=== PATIENT | female | born 1945 | race Caucasian/White ===

== ENCOUNTER → 2018-01-30 11:05 | Outpatient (CLI) | payer MEDICARE, SELFPAY ==
--- NOTE | 2018-01-30 | DI.MG.S_ITS ---
BILATERAL DIGITAL SCREENING MAMMOGRAM 3D/2D WITH CAD: 01/30/2018 CLINICAL: Routine screening. Comparison is made to exams dated: 11/10/2014 mammogram and 06/04/2012 mammogram [facility]. There are scattered fibroglandular elements in both breasts. Current study was also evaluated with a Computer Aided Detection (CAD) system. No significant masses, calcifications, or other findings are seen in either breast. There has been no significant interval change. IMPRESSION: NEGATIVE There is no mammographic evidence of malignancy. A 1 year screening mammogram is recommended. This exam was interpreted at Station ID: [id number]. NOTE: For mammograms, a report in lay terms will be sent to the patient. Approximately 15% of breast malignancies will not be visualized mammographically. In the management of a palpable breast mass, a negative mammogram must not discourage biopsy of a clinically suspicious lesion. Electronically Signed By: Radha dodge/tali:01/30/2018 14:07:08 letter sent: Normal Exam ACR BI-RADS Category 1: Negative 3341F
== END ==
PROVIDERS: PCP Family Medicine; Visit Provider Family Medicine
DX: Z12.31 Encounter for screening mammogram for malignant neoplasm of breast (principal)
CPT/HCPCS: 77063; 77067

== ENCOUNTER → 2019-03-11 10:05 | Outpatient (CLI) | payer MEDICARE, SELFPAY ==
[2019-03-11 10:19] LABS: RBC Urine None Seen (0-5/HPF)
[2019-03-11 10:51] LABS: Appearance Urine UA CLEAR; Bilirubin Urine UA NEGATIVE (NEGATIVE); Color Urine UA YELLOW; Glucose Urine UA NEGATIVE (Negative); Ketones Urine UA NEGATIVE (NEGATIVE); Leukocyte Esterase Urine UA NEGATIVE (NEGATIVE); Nitrite Urine UA NEGATIVE (Negative); Occult Blood Urine UA NEGATIVE (Negative); Protein Urine UA NEGATIVE (Negative); Urobilinogen Urine UA 0.2 E.U./dL (0.2)
[2019-03-11 11:12] LABS: Bacteria Urine Occasional (0-1); Culture Indicated Urine Cult Not Indicated; Squamous Epithelial Cell Urine 0-1 /HPF (0-5/HPF); WBC Urine 0-1/HPF (0-5/HPF)
== END ==
PROVIDERS: PCP Family Medicine; Visit Provider Family Medicine
DX: R30.0 Dysuria (principal); R35.0 Frequency of micturition; Z87.440 Personal history of urinary (tract) infections
CPT/HCPCS: 81001

== ENCOUNTER → 2019-03-19 07:58 | Outpatient (CLI) | payer MEDICARE, SELFPAY ==
[2019-03-19 09:27] LABS: Add Manual Diff / Slide Review NO; Basophils Absolute Auto 200 /uL (0-100); Basophils Percent Auto 2.2 % (0-2); Eosinophils Absolute Auto 400 /uL (0-450); Eosinophils Percent Auto 5.3 % (2-4); Hemoglobin 15.2 g/dL (12.0-16.0); Lymphocytes Absolute Auto 2500 /uL (1100-4500); Mean Corpuscular HGB Conc 34.5 % (30-36); Mean Corpuscular Hemoglobin 31.8 PG (26-34); Mean Corpuscular Volume 92.1 fL (80-100); Monocytes Absolute Auto 500 /uL (0-900); Monocytes Percent Auto 6.5 % (3-14); Neutrophils Absolute Auto 3800 /uL (1500-7000); Platelet Count 370 X10^3/uL (150-400); Red Blood Cell Count 4.78 X10^6/uL (4.0-5.2); Red Cell Distribution Width 12.3 % (11.6-14.8); White Blood Cell Count 7.3 X10^3/uL (4.5-11.0)
[2019-03-19 09:44] LABS: Alanine Aminotransferase 30 IU/L (9-52); Albumin 4.2 g/dL (3.5-5.0); Albumin Globulin Ratio 1.3 (1.0-2.8); Alkaline Phosphatase 95 U/L (38-126); Aspartate Aminotransferase 26 IU/L (14-36); Bilirubin Total 0.6 mg/dL (0.2-1.3); Blood Urea Nitrogen 12 mg/dL (7-17); Calcium 9.7 mg/dL (8.4-10.2); Carbon Dioxide 24 mmol/L (22-32); Chloride 106 mmol/L (98-107); Cholesterol 257 mg/dL (140-199); Estimated Glomerular Filt Rate > 60.0 mL/min (>60); Globulin 3.2 g/dL (1.7-4.1); Glucose 113 mg/dL (80-110); HDL Cholesterol 52 mg/dL (40-60); HEMOLYSIS < 15 (0-50); LDL Cholesterol Calculated 159 mg/dL (<100); Sodium 140 mmol/L (137-145); Total Protein 7.4 g/dL (6.3-8.2); Triglycerides 230 mg/dL (35-150)
== END ==
PROVIDERS: PCP Family Medicine; Visit Provider Family Medicine
DX: Z13.220 Encounter for screening for lipoid disorders (principal); K21.9 Gastro-esophageal reflux disease without esophagitis; E66.9 Obesity, unspecified
CPT/HCPCS: 36415; 80053; 80061; 85025

== ENCOUNTER → 2019-05-31 10:02 | Outpatient (CLI) | payer MEDICARE, SELFPAY | PROVIDERS: PCP Family Medicine; Visit Provider Family Medicine | DX: M85.88 Other specified disorders of bone density and structure, other site (principal); Z78.0 Asymptomatic menopausal state; Z90.722 Acquired absence of ovaries, bilateral | CPT/HCPCS: 77080 ==

== ENCOUNTER → 2019-12-10 09:48 | Outpatient (CLI) | payer MEDICARE, SELFPAY ==
--- NOTE | 2019-12-10 | DI.MG.S_ITS ---
BILATERAL DIGITAL SCREENING MAMMOGRAM 3D/2D WITH CAD: 12/10/2019 CLINICAL: Routine screening. Comparison is made to exams dated: 01/30/2018 mammogram - [facility], 11/10/2014 mammogram, and 06/04/2012 mammogram - [facility]. There are scattered fibroglandular elements in both breasts. Current study was also evaluated with a Computer Aided Detection (CAD) system. There is a benign intramammary node in the left breast. No significant masses, calcifications, or other findings are seen in either breast. There has been no significant interval change. IMPRESSION: There is no mammographic evidence of malignancy. A 1 year screening mammogram is recommended. This exam was interpreted at Station ID: [id number]. NOTE: For mammograms, a report in lay terms will be sent to the patient. Approximately 15% of breast malignancies will not be visualized mammographically. In the management of a palpable breast mass, a negative mammogram must not discourage biopsy of a clinically suspicious lesion. Electronically Signed By: Oneil zapata/tali:12/10/2019 10:29:51 letter sent: Normal Exam ACR BI-RADS Category 2: Benign Finding(s) 3342F
== END ==
PROVIDERS: PCP Family Medicine; Referring Provider Family Medicine; Visit Provider Family Medicine
DX: Z12.31 Encounter for screening mammogram for malignant neoplasm of breast (principal)
CPT/HCPCS: 77063; 77067

== ENCOUNTER → 2020-09-16 12:00 | Outpatient (CLI) | payer MEDICARE, SELFPAY ==
[2020-09-16 12:24] LABS: COVID19 -Nasal RAPID Negative (Negative)
== END ==
PROVIDERS: PCP Family Medicine; Visit Provider Physician Assistant
DX: Z20.822 Contact with and (suspected) exposure to COVID-19 (principal)
CPT/HCPCS: 87635

== ENCOUNTER → 2020-11-26 15:40 | Outpatient (CLI) | payer MEDICARE, SELFPAY ==
--- NOTE | 2020-11-26 15:42 | DI.RAD.S_ITS ---
PROCEDURE: XR HAND RT MIN 3V INDICATIONS: pain and swelling of fingers bilaterally TECHNIQUE: 3 views of the hand(s) acquired. COMPARISON: None. FINDINGS: Bones: No fractures or dislocations. Carpal bones are normally aligned. No suspicious bony lesions. No periosteal reaction. No osseous erosive changes. Soft tissues: No suspicious soft tissue calcifications. No soft tissue gas. IMPRESSION: No fracture. No osseous lesion. If symptoms and/or clinical suspicion for pathology persists, further assessment with repeat radiographs (7-10 days) or advanced imaging (e.g. CT, MRI or bone scan) should be considered. Dictated by: Molly Pike MD, PhD on 11/26/2020 at 18:30 Approved by: Molly Pike MD, PhD on 11/26/2020 at 18:31
--- NOTE | 2020-11-26 15:42 | DI.RAD.S_ITS ---
PROCEDURE: XR HAND LT MIN 3V INDICATIONS: pain and swelling of fingers bilaterally TECHNIQUE: 3 views of the hand(s) acquired. COMPARISON: None. FINDINGS: Bones: No fractures or dislocations. Carpal bones are normally aligned. No suspicious bony lesions. No osseous erosive changes. No periosteal reaction. Soft tissues: No suspicious soft tissue calcifications. No soft tissue gas. IMPRESSION: No fracture. No osseous lesion. If symptoms and/or clinical suspicion for pathology persists, further assessment with repeat radiographs (7-10 days) or advanced imaging (e.g. CT, MRI or bone scan) should be considered. Dictated by: Molly Pike MD, PhD on 11/26/2020 at 18:29 Approved by: Molly Pike MD, PhD on 11/26/2020 at 18:30
[2020-11-26 17:29] LABS: Add Manual Diff / Slide Review NO; Basophils Absolute Auto 100 /uL (0-100); Eosinophils Absolute Auto 300 /uL (0-450); Eosinophils Percent Auto 6.8 % (2-4); Hematocrit 40.7 % (36-46); Hemoglobin 14.4 g/dL (12.0-16.0); Lymphocytes Absolute Auto 1600 /uL (1100-4500); Lymphocytes Percent Auto 33.1 % (25-40); Mean Corpuscular HGB Conc 35.5 % (30-36); Mean Corpuscular Hemoglobin 30.7 PG (26-34); Mean Corpuscular Volume 86.6 fL (80-100); Monocytes Absolute Auto 600 /uL (0-900); Monocytes Percent Auto 12.6 % (3-14); Neutrophils Absolute Auto 2200 /uL (1500-7000); Neutrophils Percent Auto 45.5 % (50-75); Platelet Count 329 X10^3/uL (150-400); Red Cell Distribution Width 12.5 % (11.6-14.8); White Blood Cell Count 4.9 X10^3/uL (4.5-11.0)
[2020-11-26 17:32] LABS: HEMOLYSIS < 15 (0-50)
[2020-11-26 17:40] LABS: Alanine Aminotransferase 22 IU/L (<35); Alkaline Phosphatase 92 U/L (38-126); Aspartate Aminotransferase 30 IU/L (14-36); Bilirubin Total 0.4 mg/dL (0.2-1.3); Blood Urea Nitrogen 16 mg/dL (7-17); C-Reactive Protein Quant 1.2 mg/dL (<1.0); Calcium 9.8 mg/dL (8.4-10.2); Carbon Dioxide 21 mmol/L (22-32); Chloride 107 mmol/L (98-107); Estimated Glomerular Filt Rate > 60.0 mL/min (>60); Globulin 3.9 g/dL (1.7-4.1); Glucose 117 mg/dL (80-110); Sodium 136 mmol/L (137-145); Total Protein 7.9 g/dL (6.3-8.2); Uric Acid 4.8 mg/dL (2.5-6.2)
[2020-11-26 18:00] LABS: NT-proBNP (BNP-Adult 18+) 72 pg/mL (<125)
[2020-11-26 18:08] LABS: Rheumatoid Factor 136.6 IU/mL (<12.0)
== END ==
PROVIDERS: PCP Family Medicine; Referring Provider Family Medicine; Visit Provider Family Medicine
DX: M25.442 Effusion, left hand; M79.641 Pain in right hand; M79.642 Pain in left hand; M25.441 Effusion, right hand; M25.50 Pain in unspecified joint
CPT/HCPCS: 36415; 73130; 80053; 83880; 84550; 85025; 86140; 86430

== ENCOUNTER → 2021-01-05 10:36 | Outpatient (CLI) | payer MEDICARE, SELFPAY ==
--- NOTE | 2021-01-05 10:37 | DI.US.S_ITS ---
PROCEDURE: US THYROID INDICATIONS: NODULE TECHNIQUE: Real-time scanning was performed of the thyroid gland, with image documentation. COMPARISON: None. FINDINGS: Right: Thyroid lobe measures 1.1 x 1.5 x 4.7 cm, and is homogeneous in echotexture. Left: Thyroid lobe measures 2.6 x 3.3 x 5 6 cm, and is homogenous in echotexture. Isthmus: 1.8 mm thick. Nodule number: 1 Location: Left mid to inferior thyroid lobe Size: 2.3 x 2.8 x 4.0 cm. Composition: Solid Echogenicity: Hyperechoic Shape: Wider than tall Margins: Lobulated Echogenic foci: Macro calcifications. Total points: 6 ACR TI-RADS category: TR 4 Nodule number: 2 Location: Inferior right thyroid lobe Size: 3 x 3 x 5 mm. Composition: Spongiform Echogenicity: Isoechoic Shape: Wider than tall Margins: Smoothly marginated Echogenic foci: None Total points: 4 ACR TI-RADS category: TR 4 IMPRESSION: The large TR 4 thyroid nodule within the middle and inferior left thyroid lobe has a average diameter of greater than 1.5 cm and for this reason fine needle aspiration biopsy at this time is recommended. The small inferior right thyroid nodule, also a TR 4 category nodule, does not warrant biopsy or follow-up given its sub cm size. ACR TI-RADS definitions and recommendations: TI-RADS 1 (benign): 0 points. FNA not needed. TI-RADS 2 (not suspicious): 2 points. FNA not needed. TI-RADS 3 (mildly suspicious): 3 points. * FNA if 2.5 cm or larger, follow up if 1.5 cm or larger (at 1, 3, and 5 years). TI-RADS 4 (moderately suspicious): 4-6 points. * FNA if 1.5 cm or larger, follow up if 1 cm or larger (at 1, 2, 3, and 5 years). TI-RADS 5 (highly suspicious): 7 points or more. * FNA if 1 cm or larger, follow up if 0.5 cm or larger (every year for 5 years). Dictated by: Presley Padilla M.D. on 01/05/2021 at 14:45 Approved by: rPesley Padilla M.D. on 01/05/2021 at 14:53
[2021-01-05 13:28] LABS: TSH w/ Reflex to FT4 1.42 uIU/mL (0.47-4.68)
== END ==
PROVIDERS: PCP Family Medicine; Referring Provider Family Medicine; Visit Provider Family Medicine
DX: E04.2 Nontoxic multinodular goiter (principal)
CPT/HCPCS: 36415; 76536; 84443

== ENCOUNTER → 2021-01-21 09:10 | Outpatient (CLI) | payer MEDICARE, SELFPAY ==
--- NOTE | 2021-01-21 | PATH_ITS ---
Note [facility] Accession Number: [id number] TESTS RESULT FLAG UNITS REF RANGE LAB Clinician Provided Cytology Information No. of containers..01 Other (Miscellaneous) No. of containers..00 Previously Prepared Cytology Slide 01 L THYROID NODULE FNA DIAGNOSIS: 02 L THYROID NODULE FNA NEGATIVE FOR MALIGNANT CELLS. B[place]ES[place] CATEGORY II. SPECIMEN CONSISTS OF BENIGN FOLLICULAR CELLS, HEMOSIDERIN-LADEN MACROPHAGES, COLLOID, AND BLOOD. THIS PATTERN IS CONSISTENT WITH A COLLOID NODULE. Pathologist ICD10: 02 E04.1 02 Angela Nicholson MD, Pathologist NPI- [id number] Kp Covington, Story Analyst ([facility]) 01 30 CC, PINK, CLEAR Also received 1 RNA vial, 5 quick stained, and 5 alcohol fixed slides. /[facility] 01/21/[address] [place] [address] FLAG LEGEND: L-Low Normal,H-High Normal,LL-Alert Low,HH-Alert High <-Panic Low,>-Panic High,A-Abnormal,AA-Critical Abnormal Performed at: 01 =[facility] Cytology [address] [facility], [place] [address] Shashi Acosta MD, 02 LCLWA [facility] [address] [place] [id number] Paola Hunter MD, Performed at: 01 [facility] Cytology [address], [place], [place] [id number] MD Shashi Acosta MD Phone: [phone]
--- NOTE | 2021-01-21 09:13 | DI.US.S_ITS ---
PROCEDURE: US FINE NEEDLE ASPIRATION INDICATIONS: NODULE TECHNIQUE: The indications, alternatives, benefits, risks, and complications of the procedure were explained to the patient. Written informed consent was obtained and placed in the chart. The thyroid region was examined sonographically and a site was chosen for ultrasound guided percutaneous sampling. The skin was prepared and draped in the usual fashion, and anesthetized with 1% lidocaine infiltrated from the skin down to the thyroid gland. Multiple passes were then performed, with contents emptied into an appropriate pathology specimen container. A bandage was applied to the area of access at completion of the study. COMPARISON: None. FINDINGS: Location(s) of lesion(s) sampled: Left thyroid nodule. Eure: 25 gauge hypodermic needles. Number of passes: 6 Medications: 1% lidocaine for local anaesthesia. Complications: None. IMPRESSION: Successful ultrasound-guided thyroid nodule fine needle aspiration, with cytology results pending. Please see chart below for management recommendations based on cytology results. [facility] ReportingRecommendationsNon-diagnostic* Repeat US-guided FNA, with on-site cytology evaluation if possible. * Repeated non-diagnostic nodules without high suspicion US features: close observation vs surgical consult. * Consider surgery if nodule has high suspicion US features, grows >20% in 2 dimensions on followup, or patient has clinical risk factors for malignancy. Benign* If nodule has high suspicion US features: repeat US and FNA within 12 months. * If nodule has low to intermediate suspicion US features: repeat US at 12-24 months. If nodule grows (20% increase in at least 2 dimensions, with minimal increase of 2 mm or >50% change in volume), or development of new suspicious US features, then repeat FNA or continue followup. * If nodule has very low suspicion US features: followup US at >24 months. Atypia of undetermined significance, follicular lesion of undetermined significanceRepeat FNA, molecular testing, followup US, or surgical consult.Follicular neoplasm, suspicious for follicular neoplasmSurgical consult; also consider molecular testing. Suspicious for malignancySurgical consult.MalignantSurgical consult. Dictated by: Presley Padilla M.D. on 01/21/2021 at 10:52 Approved by: Presley Padilla M.D. on 01/21/2021 at 10:53
== END ==
PROVIDERS: PCP Family Medicine; Referring Provider Family Medicine; Visit Provider Family Medicine
DX: E04.1 Nontoxic single thyroid nodule (principal)
CPT/HCPCS: 10005

== ENCOUNTER 2021-04-24 10:18 | Emergency (ER) | payer MEDICARE, SELFPAY ==
[2021-04-24 10:22] VITALS: BP 149/86; PULSE 82; RESP 18; TEMP 36.8; O2SAT 98; BMI 28.3
[2021-04-24 10:54] VITALS: PULSE 72; RESP 18; O2SAT 97
--- NOTE | 2021-04-24 10:55 | ED_ITS ---
HPI - Abdominal Pain General Chief Complaint: Abdominal Pain Stated Complaint: diverticulitis attack Time Seen by Provider: 04/24/21 10:41 Source: patient Mode of arrival: Ambulatory Limitations: no limitations History of Present Illness HPI narrative: 76-year-old Female history of diverticulitis, frequent UTIs pres enting today with left lower quadrant pain ongoing for last 2-3 days. She has actually had at least 3 episodes this year she was hospitalized in [place] earlier this year and has had 2 episodes 1 in December and 1 in February since then. It seems to be exacerbated by food for her. She did have some fast food earlier which she thinks may have caused it. No seeds or nuts at this time. She has not had any fever or chills. No painful or frequent urination. No bloody stools no nausea or vomiting no chest pain. She has been taking ibuprofen which seems to help for pain. Related Data Home Medications Medication Instructions Recorded Confirmed OMEGA-3 FATTY ACIDS (FISH OIL) PO #0 03/15/16 10/03/20 [VITAMINS] #0 03/15/16 10/03/20 calcium acetate(phosphat bind) 667 #0 03/15/16 10/03/20 mg capsule aspirin 81 mg tablet,delayed 81 mg PO DAILY 08/10/20 10/03/20 release (Adult Low Dose Aspirin) Previous Rx's Medication Instructions Recorded albuterol sulfate 90 mcg/actuation 1 inh INHALATION Q4-6H PRN #18 g 09/16/20 aerosol inhaler scopolamine base 1 mg over 3 days 1 patch TRANSDERMAL Q3D PRN #1 ea 01/01/21 transdermal patch fluconazole 150 mg tablet 150 mg PO DAILY #2 tab 03/12/21 amoxicillin 875 mg-potassium 1 tab PO Q12H #20 tab 04/24/21 clavulanate 125 mg tablet (Augmentin) Allergies Allergy/AdvReac Type Severity Reaction Status Date / Time levofloxacin [From Levaquin] Allergy Mild Rash Verified 04/24/21 10:39 metronidazole [From Flagyl] Allergy Mild Rash Verified 04/24/21 10:39 Sulfa (Sulfonamide Allergy Unknown Verified 10/03/20 18:45 Antibiotics) [SULFA (SULFONAMIDE ANTIBIOTICS)] Review of Systems Review of Systems Narrative: GENERAL: Denies chills, fatigue, malaise, fever, sweats, travel HEENT: Denies sinus pain, ear pain, sore throat, difficulty swallowing, neck pain RESPIRATORY: Denies dyspnea, cough, wheezing, hemoptysis, sputum. CARDIOVASCULAR: Denies chest pain, palpitations, orthopnea, edema GASTROINTESTINAL: See HPI : Denies dysuria, frequency, incontinence, hematuria, urinary retention, flank pain. MUSCULOSKELETAL: Denies weakness, joint pain, or bony pain SKIN: No rash, no erythema, no pruritus NEUROLOGIC: Denies weakness, dizziness, headache, numbness, change in speech, confusion PSYCHIATRIC: No concerning psychosocial issues. 12 point review of systems is negative except for those stated above and HPI Patient History Medical History Dental infection Diverticulitis Herpes History of chicken pox History of chickenpox Measles Measles Recurrent UTI Tinnitus Surgical History H/O: hysterectomy History of appendectomy History of cholecystectomy History of dental surgery S/P appendectomy (~1963) S/P cholecystectomy (~1996) S/P hysterectomy (~1980) Family History Father Heart disease Mother High cholesterol Social History marital status: household members: spouse lives independently: Yes education level: college occupational status: other Smoking Status: Never smoker alcohol intake: current substance use type: does not use Smoking Status: Never smoker Exam Initial Vital Signs Initial Vital Signs: Vital Signs Temperature 98.2 F 04/24/21 10:22 Pulse Rate 82 04/24/21 10:22 Respiratory Rate 18 04/24/21 10:22 Blood Pressure 149/86 H 04/24/21 10:22 Pulse Oximetry 98 04/24/21 10:22 GENERAL: Well-appearing 76-year-old femaleand in no acute distress. HEENT: Head atraumatic,EOMI, pupils reactive, face symmetric, moist mucous membranes CARDIOVASCULAR: Regular rate and rhythm without murmurs, rubs or gallops. RESPIRATORY: Breath sounds equal bilaterally, no wheezes rales or rhonchi. ABDOMEN: Soft, tender left lower quadrant pain no flank pain no guarding rebound EXTREMITIES: Normal range of motion, no clubbing or edema. Neurovascularly intact NEUROLOGICAL: Alert and oriented x4.Normal gait and speech. SKIN: Warm, dry, no laceration, no petechiae, no rashes or lesions. Course Orders Ordered: ED Orders 04/24/21 10:44 Complete Blood Count AUTO DIFF Stat Comprehensive Metabolic Panel Stat Lipase Stat 04/24/21 10:55 CT abdomen pelvis w con Stat Vital Signs Vital signs: Vital Signs - 8 hr 04/24/21 12:09 04/24/21 12:11 Pulse Rate 86 90 Respiratory Rate 18 17 Blood Pressure 135/106 H Pulse Oximetry 95 98 MDM - Abdominal Pain Lab Data Result diagrams: 04/24/21 10:44 04/24/21 10:44 Labs: Lab Results 04/24/21 04/24/21 Range/Units 10:44 10:44 WBC 2.7 L (4.5-11.0) X10^3/uL RBC 4.96 (4.0-5.2) X10^6/uL Hgb 14.1 (12.0-16.0) g/dL Hct 42.3 (36-46) % MCV 85.3 (80-100) fL MCH 28.5 (26-34) PG MCHC 33.5 (30-36) % RDW 14.1 (11.6-14.8) % Plt Count 344 (150-400) X10^3/uL Neut % (Auto) Not Reportable Lymph % (Auto) Not Reportable Jack % (Auto) Not Reportable Eos % (Auto) Not Reportable Baso % (Auto) Not Reportable Lymph # (Auto) Not Reportable Jack # (Auto) Not Reportable Baso # (Auto) Not Reportable Total Counted 50 Seg Neutrophils % 8.0 L (38-70) % Lymphocytes % (Manual) 30.0 (25-45) % Atypical Lymphs % 22.0 H ( - 0) % Monocytes % (Manual) 32.0 H (2-11) % Eosinophils % (Manual) 8.0 H (2-4) % Neutrophils # (Manual) 216 L (6642-5922) /uL RBC Morphology Normal morphology Sodium 139 (137-145) mmol/L Potassium 4.4 (3.4-5.1) mmol/L Chloride 109 H (98-107) mmol/L Carbon Dioxide 24 (22-32) mmol/L BUN 10 (7-17) mg/dL Creatinine 0.58 (0.52-1.04) mg/dL Estimated GFR > 60.0 (>60) mL/min BUN/Creatinine Ratio 17.2 (6-22) Glucose 118 H (80-110) mg/dL Calcium 9.4 (8.4-10.2) mg/dL Total Bilirubin 0.5 (0.2-1.3) mg/dL AST 24 (14-36) IU/L ALT 17 (<35) IU/L Alkaline Phosphatase 74 (38-126) U/L Total Protein 7.7 (6.3-8.2) g/dL Albumin 4.0 (3.5-5.0) g/dL Globulin 3.7 (1.7-4.1) g/dL Albumin/Globulin Ratio 1.1 (1.0-2.8) Lipase 66 (23-300) U/L Point of care testing: Urine Dip Bedside Urine Glucose Negative Bedside Urine Bilirubin - Negative Bedside Urine Ketone - Negative Urine Specific [place] 1.010 Bedside Urine Occult Blood - Negative Bedside Urine pH 6 Bedside Urine Protein - Negative Bedside Urine Urobilinogen - Negative Bedside Urine Nitrite - Negative Bedside Urine Leukocytes - Negative Esterase Imaging Data CT scan - abdomen/pelvis: Radiologist's Impression: PROCEDURE:? CT ABDOMEN PELVIS W CON ? INDICATIONS:? llq pain ? TECHNIQUE:? After the administration of oral and IV contrast, axial sections were acquired from the lung bases to the pubic symphysis.? Coronal and sagittal reformats were performed.? For radiation dose reduction, the following was used:? automated exposure control, adjustment of mA and/or kV according to patient size. ? COMPARISON:? None. ? FINDINGS:? Image quality:? Excellent.? ? Lung bases:? Unremarkable.? Small hiatal hernia noted. ? Heart:? No significant findings. ? ? ABDOMEN: Liver:? Unremarkable.? ? Gallbladder:? Cholecystectomy Biliary ducts:? Unremarkable.? ? Pancreas:? Unremarkable.? ? Spleen:? Splenomegaly, 13 cm Adrenal Glands:? Unremarkable.? ? Kidneys and Ureters:? Unremarkable.? ? ? Stomach and Bowel:? Multiple diverticula arise from the descending and sigmoid colon.? Mild wall thickening and pericolonic phlegm atresia change noted in the mid sigmoid.? No adjacent abscess, free fluid or free air.? Moderate upstream fecal retention present in the colon as well.? No obstruction Peritoneum:? No abnormal intraperitoneal fluid.? No free air.? ? Ventral Wall: ? No hernia.? Abdominal Nodes:? No retroperitoneal or mesenteric adenopathy by size criteria.? Vessels:? Aorta and inferior vena cava are normal in size.? ? PELVIS: Pelvic Organs:? Unremarkable.? ? Bladder:? Unremarkable.? ? Pelvic Nodes: No enlarged lymph nodes.? Miscellaneous: No inguinal hernias are seen. ? ? ? Bones:? Unremarkable.? IMPRESSION:? ? 1. Mild mid sigmoid diverticulitis without evidence of abscess, free air or obstruction. 2. Mild splenomegaly, 13 cm. 3. Cholecystectomy and small hiatal hernia.? Approved by: Cristobal Clifton M.D. on 04/24/2021 at 11:03? [facility] Narrative Medical decision making narrative: It appears that patient has previously been seen in diagnosed by primary care provider in office but symptoms improved with Augmentin which she was placed on secondary to allergies to Flagyl and Levaquin. she has had imaging but it was done in [place] we have no record of imaging here. I think reasonable with 3rd bout of presumed diverticulitis to get a CT. CT confirms mild diverticulitis. Blood work is overall reassuring. The patient is going out of town shortly was start her on antibiotics. Discharge Plan Departure Patient Disposition: Home Clinical Impression: Diverticulitis Instructions: DI for Abdominal Pain-Adult Activity Restrictions/Additional Instructions: *You have been diagnosed with diverticulitis *What to do: At this time blood work is reassuring CT scan does show mild case of diverticulitis. *Continue to take medications as directed Augmentin 875 mg twice daily for 10 days--> SENT TO [facility] *Follow up with your primary care provider in 2-3 days *Return to ER if you should have increasing abdominal pain, bloody stools, nausea vomiting or fever or any new, worsening or concerning symptoms Prescriptions: New amoxicillin-pot clavulanate [Augmentin] 875-125 mg tablet 1 tab PO Q12H Qty: 20 RF: 0 No Action albuterol sulfate 90 mcg/actuation HFA aerosol inhaler 1 inh inhalation Q4-6H PRN (Reason: shortness of breath) Qty: 18 RF: 0 scopolamine base 1 mg over 3 days patch 3 day 1 patch transdermal Q3D PRN (Reason: motion sickness) Qty: 1 RF: 1 fluconazole 150 mg tablet 150 mg PO DAILY Qty: 2 RF: 1 [VITAMINS] Qty: 0 RF: 0 calcium acetate(phosphat bind) 667 mg capsule Qty: 0 RF: 0 OMEGA-3 FATTY ACIDS (FISH OIL) PO Qty: 0 RF: 0 aspirin [Adult Low Dose Aspirin] 81 mg tablet,delayed release (DR/EC) 81 mg PO DAILY RF: 0 Referrals: Cheryle Ferrera DO [Primary Care Provider] -
--- NOTE | 2021-04-24 10:55 | DI.CT.S_ITS ---
PROCEDURE: CT ABDOMEN PELVIS W CON INDICATIONS: llq pain TECHNIQUE: After the administration of oral and IV contrast, axial sections were acquired from the lung bases to the pubic symphysis. Coronal and sagittal reformats were performed. For radiation dose reduction, the following was used: automated exposure control, adjustment of mA and/or kV according to patient size. COMPARISON: None. FINDINGS: Image quality: Excellent. Lung bases: Unremarkable. Small hiatal hernia noted. Heart: No significant findings. ABDOMEN: Liver: Unremarkable. Gallbladder: Cholecystectomy Biliary ducts: Unremarkable. Pancreas: Unremarkable. Spleen: Splenomegaly, 13 cm Adrenal Glands: Unremarkable. Kidneys and Ureters: Unremarkable. Stomach and Bowel: Multiple diverticula arise from the descending and sigmoid colon. Mild wall thickening and pericolonic phlegm atresia change noted in the mid sigmoid. No adjacent abscess, free fluid or free air. Moderate upstream fecal retention present in the colon as well. No obstruction Peritoneum: No abnormal intraperitoneal fluid. No free air. Ventral Wall: No hernia. Abdominal Nodes: No retroperitoneal or mesenteric adenopathy by size criteria. Vessels: Aorta and inferior vena cava are normal in size. PELVIS: Pelvic Organs: Unremarkable. Bladder: Unremarkable. Pelvic Nodes: No enlarged lymph nodes. Miscellaneous: No inguinal hernias are seen. Bones: Unremarkable. IMPRESSION: 1. Mild mid sigmoid diverticulitis without evidence of abscess, free air or obstruction. 2. Mild splenomegaly, 13 cm. 3. Cholecystectomy and small hiatal hernia. Approved by: Cristobal Clifton M.D. on 04/24/2021 at 11:03
[2021-04-24 11:00] VITALS: PULSE 71; O2SAT 96
[2021-04-24 11:11] LABS: Alanine Aminotransferase 17 IU/L (<35); Albumin Globulin Ratio 1.1 (1.0-2.8); Alkaline Phosphatase 74 U/L (38-126); Aspartate Aminotransferase 24 IU/L (14-36); BUN Creatinine Ratio 17.2 (6-22); Bilirubin Total 0.5 mg/dL (0.2-1.3); Blood Urea Nitrogen 10 mg/dL (7-17); Calcium 9.4 mg/dL (8.4-10.2); Carbon Dioxide 24 mmol/L (22-32); Chloride 109 mmol/L (98-107); Estimated Glomerular Filt Rate > 60.0 mL/min (>60); Globulin 3.7 g/dL (1.7-4.1); Glucose 118 mg/dL (80-110); HEMOLYSIS < 15 (0-50); Lipase 66 U/L (23-300); Potassium 4.4 mmol/L (3.4-5.1); Sodium 139 mmol/L (137-145); Total Protein 7.7 g/dL (6.3-8.2)
[2021-04-24 11:22] LABS: Hematocrit 42.3 % (36-46); Hemoglobin 14.1 g/dL (12.0-16.0); Mean Corpuscular HGB Conc 33.5 % (30-36); Mean Corpuscular Hemoglobin 28.5 PG (26-34); Mean Corpuscular Volume 85.3 fL (80-100); Platelet Count 344 X10^3/uL (150-400); Red Blood Cell Count 4.96 X10^6/uL (4.0-5.2); Red Cell Distribution Width 14.1 % (11.6-14.8); White Blood Cell Count 2.7 X10^3/uL (4.5-11.0)
[2021-04-24 11:24] LABS: Add Manual Diff / Slide Review YES
[2021-04-24 11:44] LABS: Neutrophils Absolute Manual 216 /uL (3000-5900); RBC Morphology Normal Morphology; Total Cells Counted 50
[2021-04-24 12:09] VITALS: PULSE 86; RESP 18; O2SAT 95
[2021-04-24 12:11] VITALS: BP 135/106; PULSE 90; RESP 17; O2SAT 98
== END 2021-04-24 12:34 | disposition home or self-care (01) ==
PROVIDERS: Emergency Provider Emergency Medicine; PCP Family Medicine
DX: K57.92 Diverticulitis of intestine, part unspecified, without perforation or abscess without bleeding (principal)
CPT/HCPCS: 36415; 74177; 80053; 81003; 83690; 85007; 85025; 99283; 99284

== ENCOUNTER → 2021-11-09 16:47 | Outpatient (CLI) | payer MEDICARE, SELFPAY ==
--- NOTE | 2021-11-09 | DI.MG.S_ITS ---
BILATERAL DIGITAL SCREENING MAMMOGRAM 3D/2D WITH CAD: 11/09/2021 CLINICAL: Routine screening. Comparison is made to exams dated: 12/10/2019 mammogram, 01/30/2018 mammogram - [facility], and 11/10/2014 mammogram - [facility]. There are scattered fibroglandular elements in both breasts. Current study was also evaluated with a Computer Aided Detection (CAD) system. There is a benign intramammary node in the left breast. No significant masses, calcifications, or other findings are seen in either breast. There has been no significant interval change. IMPRESSION: BENIGN There is no mammographic evidence of malignancy. A 1 year screening mammogram is recommended. This exam was interpreted at Station ID: [id number]. NOTE: For mammograms, a report in lay terms will be sent to the patient. Approximately 15% of breast malignancies will not be visualized mammographically. In the management of a palpable breast mass, a negative mammogram must not discourage biopsy of a clinically suspicious lesion. Electronically Signed By: Oneil zapata/tali:11/10/2021 07:02:39 letter sent: Normal Exam ACR BI-RADS Category 2: Benign Finding(s) 3342F
== END ==
PROVIDERS: PCP Family Medicine; Referring Provider Family Medicine; Visit Provider Family Medicine
DX: Z12.31 Encounter for screening mammogram for malignant neoplasm of breast (principal)
CPT/HCPCS: 77063; 77067

== ENCOUNTER 2022-01-18 00:11 | Emergency (ER) | payer MEDICARE, SELFPAY ==
[2022-01-18 00:20] VITALS: BP 170/77; PULSE 90; RESP 21; TEMP 36.6; O2SAT 95
--- NOTE | 2022-01-18 00:31 | DI.CT.S_ITS ---
PROCEDURE: CT ABDOMEN PELVIS W CON INDICATIONS: severe abdominal pain, fever, chills, nausea TECHNIQUE: After the administration of IV contrast, axial sections were acquired from the lung bases to the pubic symphysis. Coronal and sagittal reformats were performed. For radiation dose reduction, the following was used: automated exposure control, adjustment of mA and/or kV according to patient size. COMPARISON: [facility], CT, CT ABDOMEN PELVIS W CON, 04/24/2021, 11:17. FINDINGS: Image quality: Excellent. Lung bases: There is minimal dependent atelectasis. Heart: Heart is normal in size. There is a small hiatal hernia. ABDOMEN: Liver: No mass lesion. Gallbladder: Surgically absent. Biliary ducts: No biliary ductal dilatation. Pancreas: Unremarkable. Spleen: Normal in size. Multiple punctate splenic calcifications are present consistent with sequelae of old granulomas disease. Adrenal Glands: No adrenal nodules. Kidneys and Ureters: No hydronephrosis. Stomach and Bowel: Stomach and small bowel are normal in caliber and wall thickness. No pericecal inflammatory changes to suggest appendicitis. There is colonic diverticulosis. Associated diverticular and segmental colonic wall thickening is demonstrated within the distal descending and proximal sigmoid colon with pericolonic fat stranding consistent with acute diverticulitis. There is minimal adjacent free fluid. No discrete diverticular abscess or macroscopic free air. Peritoneum: No abnormal intraperitoneal fluid. No free air. Ventral Wall: No hernia. Abdominal Nodes: No retroperitoneal or mesenteric adenopathy by size criteria. Vessels: Aorta and inferior vena cava are normal in size. PELVIS: Pelvic Organs: The uterus is surgically absent. Bladder: Unremarkable. Pelvic Nodes: No enlarged lymph nodes. Miscellaneous: No inguinal hernias are seen. Bones: Visualized osseous structures demonstrate no suspicious focal lesions. IMPRESSION: 1. Acute diverticulitis involving the distal descending and proximal sigmoid colon without evidence of diverticular abscess or macroscopic free air. 2. Given the degree of associated colonic wall thickening, consider a follow-up colonoscopy to exclude an underlying mass. Dictated by: Shashi Regalado M.D. on 01/18/2022 at 1:49 Approved by: Shashi Regalado M.D. on 01/18/2022 at 1:54
--- NOTE | 2022-01-18 00:34 | ED_ITS ---
HPI - Abdominal Pain <Tin Zhou DO - Last Filed: 01/19/22 03:49> General Chief Complaint: Abdominal Pain Stated Complaint: ATTACK OF DIVERTICULITIS Time Seen by Provider: 01/18/22 00:30 Source: patient Mode of arrival: Ambulatory History of Present Illness HPI narrative: 76-year-old female nonsmoker with history of diverticulitis presents with her in the chief complaint of severe left lower quadrant pain over the course of the day. She is had subjective fever and chills with nausea and complains that her pain is significantly worse with motion,, ending that it even hurts for her to stand upright. She had her last bout of diverticulitis about 1 year ago and states she did not need surgical intervention. She is otherwise well and denies any change in medications or diet. She has no runny nose, sore throat or cough. Related Data Home Medications Medication Instructions Recorded Confirmed OMEGA-3 FATTY ACIDS (FISH OIL) PO ##0 03/15/16 10/27/21 [VITAMINS] ##0 03/15/16 10/27/21 calcium acetate(phosphat bind) 667 ##0 03/15/16 10/27/21 mg capsule aspirin 81 mg tablet,delayed 81 mg PO DAILY 08/10/20 10/27/21 release (Adult Low Dose Aspirin) Previous Rx's Medication Instructions Recorded scopolamine base 1 mg over 3 days 1 patch transdermal Q3D PRN motion 01/01/21 transdermal patch sickness #1 ea nitrofurantoin See Rx Instructions .Route 10/19/21 monohydrate/macrocrystals 100 mg .COMPLEX #56 caps capsule amoxicillin 875 mg-potassium 1 tab PO Q12H #20 tabs 01/18/22 clavulanate 125 mg tablet Allergies Allergy/AdvReac Type Severity Reaction Status Date / Time levofloxacin [From Levaquin] Allergy Mild Rash Verified 01/03/22 12:04 metronidazole [From Flagyl] Allergy Mild Rash Verified 01/03/22 12:04 Sulfa (Sulfonamide Allergy Unknown Verified 01/03/22 12:04 Antibiotics) [SULFA (SULFONAMIDE ANTIBIOTICS)] Review of Systems <Tin Zhou DO - Last Filed: 01/19/22 03:49> Review of Systems Narrative: GENERAL: Denies chills, fatigue, malaise, fever, sweats. HEENT: Denies sinus pain, ear pain, sore throat, difficulty swallowing, dizziness. RESPIRATORY: Denies dyspnea, cough, wheezing, hemoptysis, sputum. CARDIOVASCULAR: Denies chest pain, palpitations, orthopnea, edema, GASTROINTESTINAL: See HPI : Denies dysuria, frequency, incontinence, hematuria, urinary retention. MUSCULOSKELETAL: denies weakness, joint pain, or bony pain SKIN: Denies rash, skin lesions, or other NEUROLOGIC: Denies weakness, headache, numbness, change in speech, confusion, seizures, incoordination. PSYCHIATRIC: No concerning psychosocial issues. 12 point review of systems is negative except for those stated above Patient History <Tin Zhou DO - Last Filed: 01/19/22 03:49> Medical History Dental infection Diverticulitis Herpes History of chicken pox History of chickenpox Measles Measles Recurrent UTI Tinnitus Surgical History H/O: hysterectomy History of appendectomy History of cholecystectomy History of dental surgery S/P appendectomy (~1963) S/P cholecystectomy (~1996) S/P hysterectomy (~1980) Family History Father Heart disease Mother High cholesterol Social History marital status: household members: spouse lives independently: Yes education level: college occupational status: other Smoking Status: Never smoker alcohol intake: current substance use type: does not use Smoking Status: Never smoker Substance Use Type: does not use Exam <Tin Zhou DO - Last Filed: 01/19/22 03:49> Narrative Exam Narrative: GENERAL: 76[] year old patient appears stated age. Well-developed patient, in mild distress. HEAD: Atraumatic. Normocephalic. EYES: Pupils equal round and reactive. Extraocular motions intact. No scleral icterus. No injection or drainage. ENT: Nose without bleeding, purulent drainage. Throat without erythema, tonsillar hypertrophy or exudate. Airway patent. NECK: Trachea midline. Non tender CARDIOVASCULAR: Regular rate and rhythm without murmurs, gallops, or rubs. RESPIRATORY: Clear to auscultation. Breath sounds equal bilaterally. No wheezes, rales, or rhonchi. GASTROINTESTINAL: Abdomen soft, tender in the left lower quadrant, no guarding, no peritoneal signs, bowel sounds present, nondistended. EXTREMITIES: No edema or joint tenderness. BACK: Nontender without deformity or crepitance. No flank tenderness. NEURO: AOx3. SKIN: No rash or erythema of visible areas Initial Vital Signs Initial Vital Signs: Vital Signs Temperature 98 F 01/18/22 00:20 Pulse Rate 90 01/18/22 00:20 Respiratory Rate 21 01/18/22 00:20 Blood Pressure 170/77 H 01/18/22 00:20 Pulse Oximetry 95 01/18/22 00:20 Oxygen Delivery Method 01/18/22 00:20 <Angela Groves DO - Last Filed: 01/18/22 10:27> Initial Vital Signs Initial Vital Signs: Vital Signs Temperature 98 F 01/18/22 00:20 Pulse Rate 90 01/18/22 00:20 Respiratory Rate 21 01/18/22 00:20 Blood Pressure 170/77 H 01/18/22 00:20 Pulse Oximetry 95 01/18/22 00:20 Oxygen Delivery Method 01/18/22 00:20 Course <Tin Zhou DO - Last Filed: 01/19/22 03:49> Orders Ordered: Discontinued Medications Hydrocodone Bitart/Acetaminophen (Hydrocodone/Acet 5/325 Prepack) 1 bottle MISC SEEINSTR ONE Stop: 01/18/22 02:24 Last Admin: 01/18/22 02:30 Dose: 1 bottle Documented By: DIANA Amoxicillin/Clavulanate Potassium (Amoxicillin/Clav 875/125 Mg) 1 tab PO NOW ONE Stop: 01/18/22 02:24 Last Admin: 01/18/22 02:31 Dose: 1 tab Documented By: DIANA Hydromorphone HCl (Hydromorphone 0.5 Mg Inj) 0.5 mg IV NOW ONE Stop: 01/18/22 00:32 Last Admin: 01/18/22 00:45 Dose: 0.5 mg Documented By: HAWK Ondansetron HCl (Ondansetron 4 Mg/2 Ml Inj) 4 mg IV NOW ONE Stop: 01/18/22 00:32 Last Admin: 01/18/22 00:45 Dose: 4 mg Documented By: HAWK Ondansetron HCl (Ondansetron 4 Mg Odt Prepack) 1 bottle MISC SEEINSTR ONE Stop: 01/18/22 02:24 Last Admin: 01/18/22 02:30 Dose: 1 bottle Documented By: DIANA Vital Signs Vital signs: Vital Signs - 8 hr 01/18/22 02:34 Pulse Rate 73 Respiratory Rate 20 Blood Pressure 147/67 H Pulse Oximetry 94 Oxygen Delivery Method Room Air <Angela Groves DO - Last Filed: 01/18/22 10:27> Orders Ordered: Discontinued Medications Hydrocodone Bitart/Acetaminophen (Hydrocodone/Acet 5/325 Prepack) 1 bottle MISC SEEINSTR ONE Stop: 01/18/22 02:24 Last Admin: 01/18/22 02:30 Dose: 1 bottle Documented By: DIANA Amoxicillin/Clavulanate Potassium (Amoxicillin/Clav 875/125 Mg) 1 tab PO NOW ONE Stop: 01/18/22 02:24 Last Admin: 01/18/22 02:31 Dose: 1 tab Documented By: DIANA Hydromorphone HCl (Hydromorphone 0.5 Mg Inj) 0.5 mg IV NOW ONE Stop: 01/18/22 00:32 Last Admin: 01/18/22 00:45 Dose: 0.5 mg Documented By: HAKW Ondansetron HCl (Ondansetron 4 Mg/2 Ml Inj) 4 mg IV NOW ONE Stop: 01/18/22 00:32 Last Admin: 01/18/22 00:45 Dose: 4 mg Documented By: HAWK Ondansetron HCl (Ondansetron 4 Mg Odt Prepack) 1 bottle MISC SEEINSTR ONE Stop: 01/18/22 02:24 Last Admin: 01/18/22 02:30 Dose: 1 bottle Documented By: DIANA Vital Signs Vital signs: Vital Signs - 8 hr 01/18/22 02:34 Pulse Rate 73 Respiratory Rate 20 Blood Pressure 147/67 H Pulse Oximetry 94 Oxygen Delivery Method Room Air MDM - Abdominal Pain <Tin Zhou DO - Last Filed: 01/19/22 03:49> Lab Data Result diagrams: 01/18/22 00:39 01/18/22 00:39 Labs: Lab Results 01/18/22 01/18/22 01/18/22 Range/Units 00:39 00:39 00:39 WBC 6.9 (4.5-11.0) X10^3/uL RBC 4.86 (4.0-5.2) X10^6/uL Hgb 14.5 (12.0-16.0) g/dL Hct 41.6 (36-46) % MCV 85.7 (80-100) fL MCH 29.8 (26-34) PG MCHC 34.8 (30-36) % RDW 13.2 (11.6-14.8) % Plt Count 329 (150-400) X10^3/uL Neut % (Auto) 53.3 (50-75) % Lymph % (Auto) 27.0 (25-40) % Whitman % (Auto) 15.9 H (3-14) % Eos % (Auto) 2.6 (2-4) % Baso % (Auto) 1.2 (0-2) % Neut # (Auto) 3700 (3664-9381) /uL Lymph # (Auto) 1900 (0187-1051) /uL Whitman # (Auto) 1100 H (0-900) /uL Eos # (Auto) 200 (0-450) /uL Baso # (Auto) 100 (0-100) /uL Sodium 135 L (137-145) mmol/L Potassium 4.4 (3.4-5.1) mmol/L Chloride 106 (98-107) mmol/L Carbon Dioxide 19 L (22-32) mmol/L BUN 10 (7-17) mg/dL Creatinine 0.69 (0.52-1.04) mg/dL Estimated GFR > 60 (>60) mL/min BUN/Creatinine Ratio 14.5 (6-22) Glucose 157 H (80-110) mg/dL Lactate 0.9 (0.7-2.1) mmol/L Calcium 8.7 (8.4-10.2) mg/dL Total Bilirubin 1.0 (0.2-1.3) mg/dL AST 21 (14-36) IU/L ALT 15 (<35) IU/L Alkaline Phosphatase 93 (38-126) U/L Total Protein 8.1 (6.3-8.2) g/dL Albumin 4.2 (3.5-5.0) g/dL Globulin 3.9 (1.7-4.1) g/dL Albumin/Globulin Ratio 1.1 (1.0-2.8) Lipase 73 (23-300) U/L Imaging Data CT scan - abdomen/pelvis: Radiologist's Impression: [facility] [address] [place] [id number] Scan Report Signed Patient: Michelle Dunlap MR#: [id number] : 1945 Acct:[id number] Age/Sex: 76 / F Date of Service: 01/18/22 Loc: ED Accession Number: [id number] ?? Procedure: CT abdomen pelvis w con Ordering Provider: Tin Zhou D.O. PROCEDURE:? CT ABDOMEN PELVIS W CON ? INDICATIONS:? severe abdominal pain, fever, chills, nausea ? TECHNIQUE:? After the administration of IV contrast, axial sections were acquired from the lung bases to the pubic symphysis.? Coronal and sagittal reformats were performed.? For radiation dose reduction, the following was used:? automated exposure control, adjustment of mA and/or kV according to patient size. ? COMPARISON:? [facility], CT, CT ABDOMEN PELVIS W CON, 04/24/2021, 11:17. ? FINDINGS:? Image quality:? Excellent.? ? Lung bases:? There is minimal dependent atelectasis.? ? Heart:? Heart is normal in size.? There is a small hiatal hernia. ? ? ABDOMEN: Liver:? No mass lesion. Gallbladder:? Surgically absent. Biliary ducts:? No biliary ductal dilatation.? ? Pancreas:? Unremarkable.? ? Spleen:? Normal in size.? Multiple punctate splenic calcifications are present consistent with sequelae of old granulomas disease. ? Adrenal Glands:? No adrenal nodules.? ? Kidneys and Ureters:? No hydronephrosis.? ? ? Stomach and Bowel:? Stomach and small bowel are normal in caliber and wall thickness.? No pericecal inflammatory changes to suggest appendicitis.? There is colonic diverticulosis. ?Associated diverticular and segmental colonic wall thickening is demonstrated within the distal descending and proximal sigmoid colon with pericolonic fat stranding consistent with acute diverticulitis.? There is minimal adjacent free fluid.? No discrete diverticular abscess or macroscopic free air.? Peritoneum:? No abnormal intraperitoneal fluid.? No free air.? ? Ventral Wall: ? No hernia.? Abdominal Nodes:? No retroperitoneal or mesenteric adenopathy by size criteria.? Vessels:? Aorta and inferior vena cava are normal in size.? ? PELVIS: Pelvic Organs:? The uterus is surgically absent.? ? Bladder:? Unremarkable.? ? Pelvic Nodes: No enlarged lymph nodes.? Miscellaneous: No inguinal hernias are seen. ? ? ? Bones:? Visualized osseous structures demonstrate no suspicious focal lesions. ? ? IMPRESSION:? ? 1. Acute diverticulitis involving the distal descending and proximal sigmoid colon without evidence of diverticular abscess or macroscopic free air. ? 2. Given the degree of associated colonic wall thickening, consider a follow-up colonoscopy to exclude an underlying mass.? ? ? Dictated by: Shashi Regalado M.D. on 01/18/2022 at 1:49 ? ? Approved by: Shashi Regalado M.D. on 01/18/2022 at 1:54 ? <Angela Groves, DO - Last Filed: 01/18/22 10:27> Lab Data Labs: Lab Results 01/18/22 01/18/22 01/18/22 Range/Units 00:39 00:39 00:39 WBC 6.9 (4.5-11.0) X10^3/uL RBC 4.86 (4.0-5.2) X10^6/uL Hgb 14.5 (12.0-16.0) g/dL Hct 41.6 (36-46) % MCV 85.7 (80-100) fL MCH 29.8 (26-34) PG MCHC 34.8 (30-36) % RDW 13.2 (11.6-14.8) % Plt Count 329 (150-400) X10^3/uL Neut % (Auto) 53.3 (50-75) % Lymph % (Auto) 27.0 (25-40) % Whitman % (Auto) 15.9 H (3-14) % Eos % (Auto) 2.6 (2-4) % Baso % (Auto) 1.2 (0-2) % Neut # (Auto) 3700 (3191-9781) /uL Lymph # (Auto) 1900 (7256-0575) /uL Whitman # (Auto) 1100 H (0-900) /uL Eos # (Auto) 200 (0-450) /uL Baso # (Auto) 100 (0-100) /uL Sodium 135 L (137-145) mmol/L Potassium 4.4 (3.4-5.1) mmol/L Chloride 106 (98-107) mmol/L Carbon Dioxide 19 L (22-32) mmol/L BUN 10 (7-17) mg/dL Creatinine 0.69 (0.52-1.04) mg/dL Estimated GFR > 60 (>60) mL/min BUN/Creatinine Ratio 14.5 (6-22) Glucose 157 H (80-110) mg/dL Lactate 0.9 (0.7-2.1) mmol/L Calcium 8.7 (8.4-10.2) mg/dL Total Bilirubin 1.0 (0.2-1.3) mg/dL AST 21 (14-36) IU/L ALT 15 (<35) IU/L Alkaline Phosphatase 93 (38-126) U/L Total Protein 8.1 (6.3-8.2) g/dL Albumin 4.2 (3.5-5.0) g/dL Globulin 3.9 (1.7-4.1) g/dL Albumin/Globulin Ratio 1.1 (1.0-2.8) Lipase 73 (23-300) U/L MDM Narrative Medical decision making narrative: 01/18/22 [id number]-patient not seen or evaluated by myself not signed out but called this morning for her prescription for diverticulitis. It does not appear that antibiotic prescription was sent. Allergies are to Levaquin and Flagyl and sulfa. Sending in prescription for Aug[facility] to [facility]. Discharge Plan Departure Patient Disposition: Home Clinical Impression: Diverticulitis Instructions: DI for Diverticulitis Activity Restrictions/Additional Instructions: *You have been diagnosed with [abdominal pain due to diverticulitis without evidence of abscess or perforation * As we discussed your history and physical exam as well as labs and imaging are very reassuring. *What to do: *Please continue to take your regular medications as directed. [x ] New medication prescriptions sent to your pharmacy: [[facility] ] *Please follow up with your primary care provider in 2-3 days, call for an appointment. Let them know you were seen in the Emergency Department and that we ask that you be seen in follow up. We will electronically transmit a record of today's note if your PCP is in our system *Please consider a clear liquid diet for the next 24-48 hours and then slowly advance to regular as tolerated. Also, try to avoid alcohol, nicotine, caffeine, spicy, acidic or fatty foods as this may worsen your symptoms *Return to Emergency Department if you should have any new, worsening or concerning symptoms, such as [fever greater than 101 F, shaking chills, worsening pain, persistent vomiting or other bothersome symptoms] Prescriptions: New amoxicillin-pot clavulanate 875-125 mg tablet 1 tab PO Q12H Qty: 20 0RF No Action scopolamine base 1 mg over 3 days patch 3 day 1 patch transdermal Q3D PRN (Reason: motion sickness) Qty: 1 1RF [VITAMINS] Qty: 0 calcium acetate(phosphat bind) 667 mg capsule Qty: 0 OMEGA-3 FATTY ACIDS (FISH OIL) PO Qty: 0 aspirin [Adult Low Dose Aspirin] 81 mg tablet,delayed release (DR/EC) 81 mg PO DAILY nitrofurantoin monohyd/m-cryst 100 mg capsule See Rx Instructions .ROUTE .COMPLEX Qty: 56 2RF Dose Instruction: Take 1 capsule by mouth once every 12 hours for 7 days. must take with a meal/food. Rx Instructions: Take 1 capsule by mouth once every 12 hours for 7 days. must take with a meal/food. Referrals: Cheryle Ferrera DO [Primary Care Provider] - Visit Report Forms: Patient Portal/API
[2022-01-18] MEDS: HYDROMORPHONE 0.5 MG INJ IV (00:45)
[2022-01-18] MEDS: ONDANSETRON 4 MG/2 ML INJ IV (00:45)
[2022-01-18 00:57] LABS: Add Manual Diff / Slide Review NO; Basophils Absolute Auto 100 /uL (0-100); Basophils Percent Auto 1.2 % (0-2); Eosinophils Absolute Auto 200 /uL (0-450); Eosinophils Percent Auto 2.6 % (2-4); Hematocrit 41.6 % (36-46); Hemoglobin 14.5 g/dL (12.0-16.0); Lymphocytes Absolute Auto 1900 /uL (1100-4500); Mean Corpuscular HGB Conc 34.8 % (30-36); Mean Corpuscular Hemoglobin 29.8 PG (26-34); Mean Corpuscular Volume 85.7 fL (80-100); Monocytes Absolute Auto 1100 /uL (0-900); Monocytes Percent Auto 15.9 % (3-14); Neutrophils Absolute Auto 3700 /uL (1500-7000); Neutrophils Percent Auto 53.3 % (50-75); Platelet Count 329 X10^3/uL (150-400); Red Blood Cell Count 4.86 X10^6/uL (4.0-5.2); Red Cell Distribution Width 13.2 % (11.6-14.8); White Blood Cell Count 6.9 X10^3/uL (4.5-11.0)
[2022-01-18 01:02] LABS: Alanine Aminotransferase 15 IU/L (<35); Albumin 4.2 g/dL (3.5-5.0); Albumin Globulin Ratio 1.1 (1.0-2.8); Alkaline Phosphatase 93 U/L (38-126); Aspartate Aminotransferase 21 IU/L (14-36); BUN Creatinine Ratio 14.5 (6-22); Blood Urea Nitrogen 10 mg/dL (7-17); Calcium 8.7 mg/dL (8.4-10.2); Carbon Dioxide 19 mmol/L (22-32); Chloride 106 mmol/L (98-107); Estimated Glomerular Filt Rate > 60 mL/min (>60); Globulin 3.9 g/dL (1.7-4.1); Glucose 157 mg/dL (80-110); HEMOLYSIS < 15 (0-50); Lipase 73 U/L (23-300); Potassium 4.4 mmol/L (3.4-5.1); Sodium 135 mmol/L (137-145); Total Protein 8.1 g/dL (6.3-8.2)
[2022-01-18 01:03] LABS: Lactate (Lactic Acid) 0.9 mmol/L (0.7-2.1)
[2022-01-18] MEDS: HYDROCODONE/ACET 5/325 PREPACK 1 BOTTLE MISC (02:30)
[2022-01-18] MEDS: ONDANSETRON 4 MG ODT PREPACK 1 BOTTLE MISC (02:30)
[2022-01-18] MEDS: AMOXICILLIN/CLAV 875/125 MG 1 TAB PO (02:31)
[2022-01-18 02:34] VITALS: BP 147/67; PULSE 73; RESP 20; O2SAT 94
== END 2022-01-18 02:40 | disposition home or self-care (01) ==
PROVIDERS: Emergency Provider Emergency Medicine; PCP Family Medicine
DX: K57.92 Diverticulitis of intestine, part unspecified, without perforation or abscess without bleeding (principal); R50.9 Fever, unspecified; R10.32 Left lower quadrant pain
CPT/HCPCS: 36415; 74177; 80053; 83605; 83690; 85025; 87040; 93005; 96374; 96375; 99284; J1170; J2405; Q9967

== ENCOUNTER → 2022-10-31 09:11 | Outpatient (CLI) | payer MEDICARE, SELFPAY ==
[2022-10-31 10:10] LABS: BUN Creatinine Ratio 17.1 (6-22); Blood Urea Nitrogen 12 mg/dL (7-17); Estimated Glomerular Filt Rate > 60 mL/min (>60)
== END ==
PROVIDERS: PCP Family Medicine; Referring Provider Surgery; Visit Provider Surgery
DX: K57.92 Diverticulitis of intestine, part unspecified, without perforation or abscess without bleeding (principal)
CPT/HCPCS: 36415; 82565; 84520

== ENCOUNTER → 2022-11-01 09:52 | Outpatient (CLI) | payer MEDICARE, SELFPAY ==
--- NOTE | 2022-11-01 09:53 | DI.CT.S_ITS ---
PROCEDURE: CT ABDOMEN PELVIS W CON INDICATIONS: abnormal imaging of the GI tract. History of diverticulitis. No current complaints. TECHNIQUE: After the administration of oral and intravenous contrast, axial sections were acquired from the lung bases to the pubic symphysis. Coronal and sagittal reformats were performed. For radiation dose reduction, the following was used: automated exposure control, adjustment of mA and/or kV according to patient size. COMPARISON:[facility], CT, CT ABDOMEN PELVIS W CON, 01/18/2022, 0:57. FINDINGS: Image quality: Excellent. Lung bases: Unremarkable. Heart: No significant findings. ABDOMEN: Liver: Unremarkable. Gallbladder: Absent. Biliary ducts: Unremarkable. Pancreas: Unremarkable. Spleen: Calcified granuloma. Adrenal Glands: Unremarkable. Kidneys and Ureters: Unremarkable. Stomach and Bowel: Colonic diverticulosis without evidence of diverticulitis.Peritoneum: No abnormal intraperitoneal fluid. No free air. Ventral Wall: No hernia. Abdominal Nodes: No retroperitoneal or mesenteric adenopathy by size criteria. Vessels: Aorta and inferior vena cava are normal in size. PELVIS: Pelvic Organs: Unremarkable. Bladder: Unremarkable. Pelvic Nodes: No enlarged lymph nodes. Miscellaneous: No inguinal hernias are seen. Bones: Unremarkable. IMPRESSION: Colonic diverticulosis without evidence of diverticulitis. Dictated by: Gigi Latif M.D. on 11/01/2022 at 13:56 Approved by: Gigi Latif M.D. on 11/01/2022 at 13:58
== END ==
PROVIDERS: PCP Family Medicine; Referring Provider Surgery; Visit Provider Surgery
DX: K57.92 Diverticulitis of intestine, part unspecified, without perforation or abscess without bleeding (principal)
CPT/HCPCS: 74177; Q9967

== ENCOUNTER 2022-12-08 08:00 | Day surgery (SDC) | payer MEDICARE, SELFPAY ==
--- NOTE | 2022-12-08 | PATH_ITS ---
[facility] Accession Number: [id number] No. of containers..02 Tissue . 01 Material submitted: . PART A: hepatic flexure - HEPATIC FLEXTURE MASS PART B: sigmoid colon - SIGMOID POLYP . 01 Diagnosis: A. Hepatic Flexure, Mass, Biopsies: Colonic mucosa with no diagnostic abnormality. Additional deeper levels were examined. Negative for active, chronic, and microscopic colitis. Negative for dysplasia and malignancy. . B. Sigmoid Colon, Polyp, Biopsy: Inflammatory polyp. Negative for dysplasia and malignancy. [facility] 12/13/2022 0929 Local . 01 Electronically signed: . Paola Hunter MD, Pathologist NPI- [id number] . 01 Gross description: . Part A: HEPATIC FLEXTURE MASS: Received in formalin are 3 fragment(s) of lazaro, soft tissue measuring 0.1 x 0.1 x 0.1 cm to 0.3 x 0.3 x 0.3 cm submitted entirely in 1 cassette(s) Part B: SIGMOID POLYP: Received in formalin is 1 fragment(s) of lazaro, soft tissue measuring 0.6 x 0.6 x 0.6 cm submitted entirely in 1 cassette(s) /VEE 12/09/2022 1849 Local . 01 Pathologist provided ICD-10: R93.89 . 01 CPT . 944685, 979745 Specimen Comment: A courtesy copy of this report has been sent to [phone] Performed at: [facility] [address] [place] [address] [id number] MD Shashi Acosta MD Phone: [phone]
[2022-12-08] MEDS: LACTATED RINGERS 1,000 ML 42 ML IV (08:00)
[2022-12-08 08:18] VITALS: BMI 28.0
[2022-12-08 08:41] VITALS: BP 146/81; PULSE 83; RESP 18; TEMP 36.7; O2SAT 98
--- NOTE | 2022-12-08 09:00 | P.HP_ITS ---
History of Present Illness History of Present Illness Date Patient Seen: 12/08/22 Time Patient Seen: 09:00 Chief complaint: Dx Colonoscopy Narrative: Michelle is a 77-year-old woman who is here for colonoscopy. She last had a colonoscopy about 10 years ago and was normal. She has had several episodes of diverticulitis within the past 1-2 years. She has found that avoiding certain unhealthy foods seem to help reduce her episodes of diverticulitis [facility] Medical History (Updated 02/24/22 @ 11:20 by Cheryle Ferrera DO) Arthritis Dental infection Diverticulitis Herpes History of chicken pox History of chickenpox Measles Measles Recurrent UTI Tinnitus Surgical History H/O: hysterectomy History of appendectomy History of cholecystectomy History of dental surgery S/P appendectomy (~1963) S/P cholecystectomy (~1996) S/P hysterectomy (~1980) Family History Father Heart disease Mother High cholesterol Social History marital status: household members: spouse lives independently: Yes education level: college occupational status: other Smoking Status: Never smoker alcohol intake: current substance use type: does not use Meds Home Medications and Allergies Home Medications Medication Instructions Recorded Confirmed Type OMEGA-3 FATTY ACIDS (FISH OIL) PO ##0 03/15/16 10/27/21 History calcium acetate(phosphat bind) 667 667 mg PO DAILY ##0 03/15/16 12/08/22 History mg capsule aspirin 81 mg tablet,delayed 81 mg PO DAILY 08/10/20 12/08/22 History release (Adult Low Dose Aspirin) scopolamine base 1 mg over 3 days 1 patch transdermal Q3D PRN motion 01/01/21 10/27/21 Rx transdermal patch sickness #1 ea sodium sul 1.479 gram-potas ch See Rx Instructions PO PER PKG DIR 10/31/22 Rx 0.188 gram-magnes sul 0.225 gram #24 tabs tablet (Sutab) cholecalciferol (vitamin D3) 25 25 mcg PO DAILY 12/08/22 12/08/22 History mcg (1,000 unit) tablet (Vitamin D3) Allergies Allergy/AdvReac Type Severity Reaction Status Date / Time levofloxacin [From Levaquin] Allergy Mild Rash Verified 12/08/22 08:13 metronidazole [From Flagyl] Allergy Mild Rash Verified 12/08/22 08:13 Sulfa (Sulfonamide Allergy Unknown Rash Verified 12/08/22 08:13 Antibiotics) [SULFA (SULFONAMIDE ANTIBIOTICS)] Exam Vital Signs (past 8 hours): - 12/08/22 08:41 Temperature 98.0 F Pulse Rate 83 Respiratory Rate 18 Blood Pressure 146/81 H Pulse Oximetry 98 Oxygen Delivery Method Room Air Oxygen Delivery Method Room Air Const General: No acute distress Assessment & Plan Assessment and plan (1) Diverticulitis: Status: Acute Plan We reviewed the risks and benefits of colonoscopy and she would like to proceed.
--- NOTE | 2022-12-08 09:45 | PM.OP.COLON ---
Operative Date/Time/Diagnoses Date of procedure: 12/08/22 Time of procedure: 09:45 Pre-op diagnosis: Colon cancer screening and diverticulitis Post-op diagnosis: same Procedure & Clinicians Study performed: Colonoscopy Same procedure as scheduled: Yes Surgeon: Eduard Peguero Procedure Notes Procedure in detail: Surgeon: Eduard Peguero MD Anesthesia: Gene Rodriguez D.O. Procedure: The patient was brought to the endoscopy suite, placed in left lateral decubitus position. The patient was connected to monitoring devices. A time-out was performed. Sedation was administered. Once the patient was adequately sedated, a digital rectal exam was performed and was normal. The scope was then inserted and advanced to the cecum where the appendiceal orifice was identified and photographed. The scope was then slowly withdrawn over greater than 6 minutes. The mucosa was thoroughly inspected. There was a 2-3 cm lipoma in the proximal transverse colon just past the hepatic flexure. Two biopsies were taken with a Jumbo forceps to confirm that it was not adenomatous mucosa. There was moderate diverticulosis in the sigmoid colon. There was a 1 cm polyp in the distal sigmoid colon removed with a hot snare. The scope was retroflexed in the rectum. No other abnormalities were seen. The scope was straightened and removed. The patient was awakened and brought to recovery. Scope withdrawal time: 14 minutes Sedation time: 24 minutes EBL: 5 mL Findings: Proximal transverse colon 2-3 cm lipoma and distal sigmoid colon 1 cm polyp Post-procedure Disposition: PACU
[2022-12-08 09:46] VITALS: BP 132/67; PULSE 70; RESP 14; TEMP 36.1; O2SAT 97
[2022-12-08 09:52] VITALS: BP 138/70; PULSE 72; RESP 13; TEMP 36.2; O2SAT 98
[2022-12-08 09:57] VITALS: BP 147/94; PULSE 76; RESP 21; TEMP 36.3; O2SAT 99
[2022-12-08 10:01] VITALS: BP 152/68; PULSE 77; RESP 16; TEMP 35.8; O2SAT 99
== END 2022-12-08 10:20 | disposition home or self-care (01) ==
PROVIDERS: PCP Family Medicine; Referring Provider Surgery; Visit Provider Surgery
PROC: 0DJD8ZZ Inspection of Lower Intestinal Tract, Via Natural or Artificial Opening Endoscopic (ICD-10-PCS; CPT 45378; principal; 2022-12-08 09:00)
DX: Z12.11 Encounter for screening for malignant neoplasm of colon (principal); Z87.19 Personal history of other diseases of the digestive system; K51.40 Inflammatory polyps of colon without complications
CPT/HCPCS: 45385; 45380; J2704

== ENCOUNTER → 2023-02-01 07:44 | Outpatient (CLI) | payer MEDICARE, SELFPAY | PROVIDERS: PCP Family Medicine; Visit Provider Physician Assistant | DX: R30.0 Dysuria (principal) | CPT/HCPCS: 87086 ==

== ENCOUNTER → 2023-04-27 14:56 | Outpatient (CLI) | payer MEDICARE, SELFPAY ==
--- NOTE | 2023-04-27 | DI.MG.S_ITS ---
BILATERAL DIGITAL SCREENING MAMMOGRAM 3D/2D WITH CAD: 04/27/2023 CLINICAL: Routine screening. Comparison is made to exams dated: 11/09/2021 mammogram, 12/10/2019 mammogram, and 01/30/2018 mammogram - [facility]. There are scattered areas of fibroglandular density in both breasts (category b / 25%-50% glandular tissue). Current study was also evaluated with a Computer Aided Detection (CAD) system. There is a benign intramammary node in the left breast. No significant masses, calcifications, or other findings are seen in either breast. There has been no significant interval change. IMPRESSION: BENIGN There is no mammographic evidence of malignancy. A 1 year screening mammogram is recommended. Based on the Tyrer Cuzick model (a risk assessment model) the patient's lifetime risk is 3.7% and her 10 year risk is 0.0%. According to the ACR, ACS, and NCCN guidelines, an annual breast MRI exam along with mammogram is recommended if the patient's lifetime risk is 20% or greater. This exam was interpreted at Station ID: [id number]. NOTE: For mammograms, a report in lay terms will be sent to the patient. Approximately 15% of breast malignancies will not be visualized mammographically. In the management of a palpable breast mass, a negative mammogram must not discourage biopsy of a clinically suspicious lesion. Electronically Signed By: Oneil zapata/tali:04/28/2023 18:26:39 letter sent: Normal Exam ACR BI-RADS Category 2: Benign Finding(s) [id number]
== END ==
PROVIDERS: PCP Student in an Organized Health Care Education/Training Program; Referring Provider Student in an Organized Health Care Education/Training Program; Visit Provider Student in an Organized Health Care Education/Training Program
DX: Z12.31 Encounter for screening mammogram for malignant neoplasm of breast (principal)
CPT/HCPCS: 77063; 77067

== ENCOUNTER → 2023-05-01 12:42 | Outpatient (CLI) | payer MEDICARE, SELFPAY ==
[2023-05-01 14:40] LABS: Add Manual Diff / Slide Review NO; Basophils Absolute Auto 200 /uL (0-100); Basophils Percent Auto 2.7 % (0-2); Eosinophils Absolute Auto 400 /uL (0-450); Hemoglobin 14.4 g/dL (12.0-16.0); Lymphocytes Absolute Auto 1800 /uL (1100-4500); Mean Corpuscular HGB Conc 35.9 % (30-36); Mean Corpuscular Hemoglobin 31.5 PG (26-34); Mean Corpuscular Volume 87.7 fL (80-100); Monocytes Absolute Auto 500 /uL (0-900); Monocytes Percent Auto 7.3 % (3-14); Neutrophils Absolute Auto 3400 /uL (1500-7000); Platelet Count 324 X10^3/uL (150-400); Red Blood Cell Count 4.56 X10^6/uL (4.0-5.2); White Blood Cell Count 6.2 X10^3/uL (4.5-11.0)
[2023-05-01 14:50] LABS: Alanine Aminotransferase 21 IU/L (<35); Albumin Globulin Ratio 1.2 (1.0-2.8); Alkaline Phosphatase 93 U/L (38-126); Aspartate Aminotransferase 25 IU/L (14-36); BUN Creatinine Ratio 23.8 (6-22); Bilirubin Total 0.3 mg/dL (0.2-1.3); Blood Urea Nitrogen 15 mg/dL (7-17); Calcium 9.5 mg/dL (8.4-10.2); Carbon Dioxide 23 mmol/L (22-32); Chloride 105 mmol/L (98-107); Estimated Glomerular Filt Rate > 60 mL/min (>60); Globulin 3.4 g/dL (1.7-4.1); Glucose 112 mg/dL (80-110); HEMOLYSIS < 15 (0-50); Potassium 4.3 mmol/L (3.4-5.1); Sodium 136 mmol/L (137-145); Total Protein 7.4 g/dL (6.3-8.2)
[2023-05-01 15:19] LABS: TSH w/ Reflex to FT4 2.07 uIU/mL (0.47-4.68)
== END ==
PROVIDERS: PCP Student in an Organized Health Care Education/Training Program; Referring Provider Student in an Organized Health Care Education/Training Program; Visit Provider Student in an Organized Health Care Education/Training Program
DX: F41.9 Anxiety disorder, unspecified (principal)
CPT/HCPCS: 36415; 80053; 84443; 85025

== ENCOUNTER → 2024-07-04 15:01 | Outpatient (CLI) | payer MEDICARE, SELFPAY ==
[2024-07-04 15:30] LABS: Add Manual Diff / Slide Review NO; Basophils Absolute Auto 100 /uL (0-100); Basophils Percent Auto 1.5 % (0-2); Eosinophils Absolute Auto 300 /uL (0-450); Eosinophils Percent Auto 6.1 % (2-4); Hematocrit 42.1 % (36-46); Hemoglobin 14.7 g/dL (12.0-16.0); Lymphocytes Absolute Auto 1600 /uL (1100-4500); Lymphocytes Percent Auto 32.6 % (25-40); Mean Corpuscular HGB Conc 34.9 % (30-36); Mean Corpuscular Hemoglobin 30.2 PG (26-34); Mean Corpuscular Volume 86.5 fL (80-100); Monocytes Absolute Auto 500 /uL (0-900); Monocytes Percent Auto 9.8 % (3-14); Neutrophils Absolute Auto 2400 /uL (1500-7000); Platelet Count 332 X10^3/uL (150-400); Red Blood Cell Count 4.87 X10^6/uL (4.0-5.2); Red Cell Distribution Width 13.3 % (11.6-14.8); White Blood Cell Count 4.8 X10^3/uL (4.5-11.0)
[2024-07-04 16:04] LABS: Alanine Aminotransferase 21 IU/L (<35); Albumin Globulin Ratio 1.2 (1.0-2.8); Alkaline Phosphatase 104 U/L (38-126); Aspartate Aminotransferase 27 IU/L (14-36); Bilirubin Total 0.5 mg/dL (0.2-1.3); Blood Urea Nitrogen 18 mg/dL (7-17); Calcium 9.4 mg/dL (8.4-10.2); Carbon Dioxide 24 mmol/L (22-32); Chloride 105 mmol/L (98-107); Estimated Glomerular Filt Rate > 60 mL/min (>60); Globulin 3.4 g/dL (1.7-4.1); Glucose 136 mg/dL (80-110); HEMOLYSIS < 15 (0-50); Potassium 4.3 mmol/L (3.4-5.1); Sodium 137 mmol/L (137-145); Total Protein 7.4 g/dL (6.3-8.2)
[2024-07-04 16:31] LABS: Creatinine Urine Random 84.64 mg/dL
[2024-07-04 16:36] LABS: Thyroid Stimulating Hormone 1.69 uIU/mL (0.47-4.68)
[2024-07-04 16:39] LABS: Microalbumin Urine Random < 0.6 mg/dL (0-1.6)
== END ==
PROVIDERS: PCP Student in an Organized Health Care Education/Training Program; Referring Provider Student in an Organized Health Care Education/Training Program; Visit Provider Student in an Organized Health Care Education/Training Program
DX: I10 Essential (primary) hypertension (principal)
CPT/HCPCS: 36415; 80053; 82043; 82570; 84443; 85025

== ENCOUNTER → 2025-05-01 13:23 | Outpatient (CLI) | payer MEDICARE, SELFPAY ==
--- NOTE | 2025-05-01 13:24 | DI.MRI.S_ITS ---
PROCEDURE: MR HEAD/BRAIN WO/W CON INDICATIONS: eval and treat TECHNIQUE: Noncontrast axial T1 spin echo, axial T2 fast spin echo, sagittal and axial FLAIR, coronal T2 fast spin echo, axial gradient echo, axial diffusion and ADC through the brain. After the administration of contrast, axial and coronal and sagittal T1 spin echo with fat saturation through the brain. COMPARISON: None. FINDINGS: Image quality: Excellent. CSF spaces: Basal cisterns are patent. No extra-axial fluid collections. Ventricles are normal in size and shape. Brain: No midline shift. No intracranial bleeds or masses. No abnormal intracranial enhancement. There is mild cerebral volume loss for age. There is minimal periventricular white matter chronic small vessel ischemic change. The brainstem appears normal. Diffusion-weighted images demonstrate no acute infarct. No chronic ischemic insults. Normal intravascular flow voids are present. Skull and face: Calvarial marrow is normal in signal. Bilateral lens replacements. Otherwise, the orbits are unremarkable. Sinuses: Air-fluid level within the left sphenoid sinus. Minimal maxillary sinus mucosal thickening. Small mastoid fluid bilaterally. IMPRESSION: No acute intracranial abnormalities or abnormal intracranial enhancement. Mild age-related global volume loss and minimal chronic microvascular ischemic changes. Air-fluid level within the left sphenoid sinus, correlate for acute sinusitis. Dictated by: Izaiah Plaza M.D. on 05/01/2025 at 14:52 Approved by: Izaiah Plaza M.D. on 05/01/2025 at 15:00
== END ==
LOC: MRI 13:24
PROVIDERS: PCP Student in an Organized Health Care Education/Training Program; Referring Provider Student in an Organized Health Care Education/Training Program; Visit Provider Student in an Organized Health Care Education/Training Program
DX: H93.13 Tinnitus, bilateral (principal); Z96.1 Presence of intraocular lens
CPT/HCPCS: 70553; A9579

== ENCOUNTER → 2025-05-06 15:09 | Outpatient (CLI) | payer MEDICARE, SELFPAY ==
--- NOTE | 2025-05-06 15:11 | DI.MG.S_ITS ---
MM screening mammo BI: 05/06/2025. BI-RADS: 1 CLINICAL: 80-year old female for bilateral screening mammogram. Tyrer-Cuzick lifetime risk of 0.9%. No personal or first-degree family history of breast cancer. PRIOR EXAMS 04/27/2023, 11/09/2021, 12/10/2019, 01/30/2018. MAMMOGRAPHY TECHNIQUE: 2D and 3D (tomosynthesis) digital mammographic views obtained, with additional images as needed for full coverage. Current study was also evaluated with a Computer Aided Detection (CAD) system. DENSITY B. There are scattered areas of fibroglandular density. MAMMOGRAPHY FINDINGS Bilateral: No suspicious mass, asymmetry, microcalcification, or other abnormality seen. No significant change from comparison. IMPRESSION: * No evidence of malignancy. RECOMMENDATIONS Bilateral * Annual screening mammography. OVERALL ASSESSMENT CATEGORY BI-RADS-1: Negative. The [employer] recommends annual screening mammography beginning at age 40 for women with average risk of breast cancer. ELECTRONICALLY SIGNED: Madison Norman M.D. on 05/07/2025 at 11:39:15 AM PT Interpreting Station ID: [id number]
== END ==
LOC: MAMMO 15:10
PROVIDERS: PCP Student in an Organized Health Care Education/Training Program; Referring Provider Student in an Organized Health Care Education/Training Program; Visit Provider Student in an Organized Health Care Education/Training Program
DX: Z12.31 Encounter for screening mammogram for malignant neoplasm of breast (principal)
CPT/HCPCS: 77063; 77067